=== PATIENT | female | born 1995 ===

== ENCOUNTER 2021-08-31 14:15 | Inpatient (IN) | payer OTHER ==
[~2021-08-31] VITALS: Ht 152.4 cm; Wt 3.2 kg
[2021-09-12] MEDS ORDERED: PRENATAL + DHA1 EAC1 PO (09:06)
== END 2021-09-15 11:44 | disposition home or self-care (01) | DRG 788 ==
LOC: OB/GYN 09-11 20:11 → LDR 09-11 20:11 → O/R 09-12 11:44 → OB/GYN 09-12 11:54 → SURH 09-12 14:15 → OB/GYN 09-15 11:44
PROVIDERS: ADMIT Obstetrics & Gynecology; ATTEND Obstetrics & Gynecology
PROC: 4A1HXCZ Monitoring of Products of Conception, Cardiac Rate, External Approach (ICD-10-PCS; 2021-09-11)
PROC: 10D00Z1 Extraction of Products of Conception, Low, Open Approach (ICD-10-PCS; principal; 2021-09-12 10:00)
DX: O62.0 Primary inadequate contractions (principal); O36.8130 Decreased fetal movements, third trimester, not applicable or unspecified; Z3A.40 40 weeks gestation of pregnancy; Z37.0 Single live birth; Z20.822 Contact with and (suspected) exposure to COVID-19

== ENCOUNTER 2024-06-23 08:45 | Inpatient (IN) | payer OTHER ==
[~2024-06-23] VITALS: Ht 152.4 cm; Wt 3.2 kg
[~2024-06-23 08:45] MED LIST: PRENATAL + DHA1 EAC1 PO
[2024-06-25 04:54] VITALS: BP 130/82
[2024-06-25] MEDS ORDERED: CITRIC ACID/SODIUM CITRATE 30 ML BLIST.PACK PO ONE (09:22)
[2024-06-25] MEDS ORDERED: CEFAZOLIN SODIUM 1,000 MG VIAL ONE (09:22)
[2024-06-25] MEDS ORDERED: OXYTOCIN 10 UNITS/ML VIAL ONE (09:26)
[2024-06-25] MEDS ORDERED: ERYTHROMYCIN BASE OPHT 1GM EACH TUBE OP ONE (09:27)
[2024-06-25] MEDS ORDERED: RINGERS SOLUTION,LACTATED 1,000 ML IV SCH (10:45)
[2024-06-25] MEDS ORDERED: MORPHINE SULFATE 4 MG/ML CARTRIDGE IV PRN (10:45)
[2024-06-25] MEDS ORDERED: OXYTOCIN 1,000 ML IV ONE (10:45)
[2024-06-25] MEDS ORDERED: ONDANSETRON HCL 2 MG/ML VIAL IV SCH (12:00)
[2024-06-25] MEDS ORDERED: ACETAMINOPHEN 500 MG GEL..CAP PO SCH (12:00)
[2024-06-25] MEDS ORDERED: KETOROLAC TROMETHAMINE 30 MG VIAL IV SCH (12:00)
[2024-06-25] MEDS ORDERED: MORPHINE SULFATE 4 MG/ML VIAL IV ONE (13:10)
[2024-06-25 13:39] VITALS: BP 101/63
[2024-06-25 16:08] VITALS: BP 123/75
[2024-06-25] MEDS ORDERED: SIMETHICONE 125 MG CAPSULE PO SCH (17:00)
[2024-06-25] MEDS ORDERED: GABAPENTIN 300 MG CAPSULE PO SCH (17:00)
[2024-06-25 23:41] VITALS: BP 97/63
[2024-06-26 05:00] VITALS: BP 120/70
[2024-06-26 06:56] LABS: HEMATOCRIT 31.3 % (36.0-45.00); HEMOGLOBIN 11.1 g/dL (12.0-15.00); MEAN CELL VOLUME 82.1 fL (80.00-100.00); MEAN CORPUSCULAR HEMOGLOBIN 29.1 pg (27.00-32.0); MEAN CORPUSCULAR HGB CONC 35.5 g/dl (32.0-36.0); PLATELET COUNT 173 K/uL (150-450); RED BLOOD COUNT 3.81 M/uL (4.00-6.00); RED CELL DISTRIBUTION WIDTH 14.6 % (11.5-14.5)
[2024-06-26] MEDS ORDERED: OxyCODONE HCL 5 MG TABLET (ROXICODONE) PO PRN (08:00)
[2024-06-26] MEDS ORDERED: KETOROLAC TROMETHAMINE 10 MG TABLET PO SCH (08:00)
[2024-06-26 08:33] VITALS: BP 109/64
[2024-06-26] MEDS ORDERED: DOCUSATE SODIUM 100MG CAP PO SCH (09:00)
[2024-06-26 13:44] VITALS: BP 112/74
[2024-06-26] MEDS ORDERED: ERYTHROMYCIN BASE OPHT 1GM EACH TUBE OP ONE (15:00)
[2024-06-26] MEDS ORDERED: CITRIC ACID/SODIUM CITRATE 30 ML BLIST.PACK PO ONE (15:00)
[2024-06-26] MEDS ORDERED: CEFAZOLIN SODIUM 1,000 MG VIAL IV ONE (15:00)
[2024-06-26] MEDS ORDERED: OXYTOCIN 20 UNITS/1000ML RL PIGGYBAG IV ONE (15:00)
[2024-06-26 16:44] VITALS: BP 121/77
[2024-06-27 00:04] VITALS: BP 115/77
[2024-06-27 09:01] VITALS: BP 105/70
== END 2024-06-27 15:17 | disposition home or self-care (01) | DRG 785 ==
LOC: OB/GYN 06-25 04:42 → O/R 06-25 04:42 → OB/GYN 06-25 08:45
PROVIDERS: Obstetrics & Gynecology; ADMIT Obstetrics & Gynecology Maternal & Fetal Medicine; ATTEND Obstetrics & Gynecology Maternal & Fetal Medicine
PROC: 0UB70ZZ Excision of Bilateral Fallopian Tubes, Open Approach (ICD-10-PCS; 2024-06-25)
PROC: 4A1HXCZ Monitoring of Products of Conception, Cardiac Rate, External Approach (ICD-10-PCS; 2024-06-25)
PROC: 10D00Z1 Extraction of Products of Conception, Low, Open Approach (ICD-10-PCS; principal; 2024-06-25 14:15)
DX: O34.211 Maternal care for low transverse scar from previous cesarean delivery (principal); Z3A.39 39 weeks gestation of pregnancy; Z37.0 Single live birth; Z30.2 Encounter for sterilization